=== PATIENT | male | born 1955 | race Caucasian/White ===

== ENCOUNTER 2017-08-27 13:12 | Observation (INO) | payer OTHER ==
[~2017-08-27] VITALS: Ht 190.5 cm; Wt 106.6 kg
--- NOTE | 2017-08-27 16:11 | ED UPPER/LOWER EXTREMITY COMPL ---
History of Present Illness General Chief Complaint: General Adult Stated Complaint: SYNCOPE, +LOC,LEFT ARM PAIN, WORK RELATED INJURY Source: patient Exam Limitations: no limitations Vital Signs & Intake/Output Vital Signs & Intake/Output Vital Signs Date Time Temp Pulse Resp B/P B/P Pulse O2 O2 Flow FiO2 Mean Ox Delivery Rate 08/27 1736 97 Room Air 08/27 1734 97.8 50 16 126/67 95 Room Air 08/27 1327 96.7 58 16 120/74 96 Room Air Allergies Coded Allergies: No Known Allergies (08/27/17) Reconcile Medications Allopurinol 100 MG TABLET 1 TAB PO DAILY GOUT (Reported) Dextroamphetamine/Amphetamine (Dextroamp-Amphetamin 10 MG Tab) 10 MG TABLET 1 TAB PO BID ADHD (Reported) Triage Note: 61 HE WAS LIFTING/THROWING SALT WITH A SHOVEL - "FELT A POP AND HAVE HAD PAIN SINCE". PT STATES HE THEN TOOK A FEW STEPS AND "I KNEW I WAS GOING TO PASS OUT .. IT WAS QUICK .. FROM THE PAIN". PT GOT HIMSELF UP AFTER LOC. SMALL ABRASION TO TOP OF HEAD FROM STRIKING ON TRUCK. AT PRESENT, STATES HE FEELS "WELL" BUT CONTINUES TO HAVE PAIN IN ARM. EKG COMPLETED AND SIGNED BY MD ALLEN COMP COMPLETED Triage Nurses Notes Reviewed? yes Onset: Abrupt Duration: constant Timing: single episode today Severity: severe Severity Numbers: 7 HPI: Patient is a 61-year-old male who presents to emergency room with concerns of a left elbow and biceps injury where he states that all shoveling snow he had acute onset of sharp stabbing severe left localized elbow pain where he states that this pain was so severe that he believes he lost consciousness were patient woke up on on the pavement where he believes he struck the top of his head to the pickup truck next to him more bleeding was controlled prior to arrival of his scalp. Patient's tetanus is unknown. Patient denies any headache (Sally Rutledge) Past History Travel History Traveled to [place] past 21 day No Medical History Any Pertinent Medical History? 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 No (Sally Rutledge) Review of Systems Review of Systems Constitutional: Reports: no symptoms. EENTM: Reports: no symptoms. Respiratory: Reports: no symptoms. Cardiovascular: Reports: see HPI. Gastrointestinal/Abdominal: Reports: no symptoms. Genitourinary: Reports: no symptoms. Musculoskeletal: Reports: see HPI. Skin: Reports: see HPI. Neurological/Psychological: Reports: no symptoms. Hematologic/Endocrine: Reports: no symptoms. Immunological: Reports: no symptoms. All Other Systems: Reviewed and Negative (Sally Rutledge) Physical Exam Physical Exam General Appearance: no apparent distress, alert, comfortable Head: evidence of injury Eyes: Bilateral: normal appearance, PERRL, EOMI. Ears, Nose, Throat: normal pharynx, normal ENT inspection, hearing grossly normal Neck: tender lateral Cardiovascular/Respiratory: normal breath sounds, normal peripheral pulses, no respiratory distress, bradycardia Peripheral Pulses: 2+ radial (R), 2+ radial (L) Neurologic/Tendon: normal sensation, responds to pain, no evidence tendon injury , no pulse deficit Skin: intact, normal color, warm/dry Comments: Left shoulder normal inspection pain elicited 2 antecubital fossa upon the shoulder flexion Left elbow denies antecubital fossa point tenderness positive. Pronation supination reproduced pain to the left biceps patient has mild decreased active range of motion noted with elbow flexion Left wrist normal inspection and nontender Left upper extremity dermatomes intact radial pulse +2 Head- noted superior parietal region of left scalp a 2 cm mildly gaping superficial linear laceration with no active bleeding no hematoma (Sally Rutledge) Progress Differential Diagnosis: arterial insufficiency, compartment syndrome, contusion, dislocation, DVT, fracture, gout, septic arthritis, sprain, tendon injury Diagnostic Imaging: Viewed by Me: Radiology Read. Radiology Impression: no acute abnormality Initial ED EK BPM,NSR Comments: PATIENT: SALLY DAO PRESENT AGE: 61 PATIENT ACCOUNT NO: [id number] : 59 LOCATION: [facility] ORDERING PHYSICIAN: Sally MONROY SERVICE DATE: 08/27/17 EXAM TYPE: CAT - CT CERV SPINE WO IV CONTRAST; CT HEAD WO IV CONTRAST EXAMINATIONS: CT HEAD WITHOUT CONTRAST AND CT CERVICAL SPINE WITHOUT CONTRAST CLINICAL INFORMATION: Trauma to head and neck. Pain. COMPARISON: None. TECHNIQUE: Contiguous helical images of the brain were obtained without IV contrast. Contiguous helical images of the cervical spine were obtained without IV contrast. Multiplanar reconstructions were performed. DLP: 616 mGy-cm. FINDINGS: There are no pathologic extra-axial fluid collections. The lateral, third, fourth ventricles are nondilated and concordant with the appearance of the sulci. There is no evidence for acute intraparenchymal hemorrhage or infarct. There is neither mass nor mass effect. There is no shift of midline structures. The paranasal sinuses and mastoid air cells are clear. There are no osseous lesions. The cervical vertebra are in normal alignment. There is disc height loss at C5/C6. Disc heights and vertebral heights are otherwise well-preserved. There are no fractures. There is no prevertebral soft tissue swelling. There is no cervical lymphadenopathy. The visualized lung apices are clear. IMPRESSION: No evidence for acute intracranial injury. Mild degenerative change within the lower cervical spine. No evidence for acute injury to the cervical spine. DICTATED BY: Jb Bridges MD DATE/TIME DICTATED:08/27/171640 CLAIMS ACCOUNT MANAGER:KULDIP DATE/TIME TRANSCRIBED:08/27/171640 PATIENT: SALLY DAO PRESENT AGE: 61 PATIENT ACCOUNT NO: [id number] : 59 LOCATION: [facility] ORDERING PHYSICIAN: Sally MONROY SERVICE DATE: 08/27/17160 EXAM TYPE: RAD - XRY-ELBOW 3 OR MORE VIEWS, L EXAMINATION: XR ELBOW, LEFT CLINICAL INFORMATION: Status post fall. Left elbow pain. Presumptive diagnosis of left biceps tendon rupture. COMPARISON: None TECHNIQUE: AP, lateral, and oblique views of the left elbow. FINDINGS: There is no evidence of acute fracture or dislocation. No elbow joint effusion noted. Minimal enthesopathic changes are noted from the medial distal humeral epicondyle and coronoid process. Tiny soft tissue calcifications are noted adjacent to the lateral humeral epicondyle. IMPRESSION: No evidence of acute fracture or dislocation in the left elbow. Minimal degenerative changes. DICTATED BY: Valente So MD DATE/TIME DICTATED:08/27/17 (Juventino MONROY,Sally) Plan of Care: Orders Procedure Date/time Status Regular Diet 08/[address] in observation 08/27 1818 Active Misc Message 08/27 1818 Active ED Holding Orders 08/27 181 Active Vital Signs 08/27 181 Active Code Status 08/27 181 Active MAGNESIUM 08/27 1645 Complete Telemetry/Hand Bunch Maker 08/27 161 Active TROPONIN LEVEL 08/27 161 Complete COMPREHENSIVE METABOLIC PANEL 08/27 161 Complete CBC WITHOUT DIFFERENTIAL 08/27 161 Complete EKG 08/27 1317 Active Laboratory Tests 08/27/17 1645: Anion Gap 14, Estimated GFR > 60, BUN/Creatinine Ratio 17.5, Glucose 99, Calcium 9.6, Magnesium 2.1, Total Bilirubin 0.5, AST 21, ALT 38, Alkaline Phosphatase 51 , Troponin I < 0.01, Total Protein 7.1, Albumin 4.5, Globulin 2.6, Albumin/ Globulin Ratio 1.7, CBC w Diff NO MAN DIFF REQ, RBC 4.87, MCV 93.5, MCH 31.0, RDW 12.9, MPV 7.0 L, Gran % 84.5 H, Lymphocytes % 11.9 L, Monocytes % 3.2, Eosinophils % 0.3, Basophils % 0.1, Absolute Granulocytes 8.2 H, Absolute Lymphocytes 1.1 L, Absolute Monocytes 0.3, Absolute Eosinophils 0, Absolute Basophils 0, PUBS MCHC 33.2 08/27/17 1613: Magnesium Cancelled Patient on initial examination was resting comfortably bedside however due to patient's severe pain and which he states that the pain made him pass out patient's EKG is concerning that it is 49 bpm sinus bradycardia patient is also on amphetamines for ADHD and which there is also consideration of bradycardia and syncopal episode There is noted the patient has been on radiation monitor showing sinus rhythm at 45-[address] scan was unremarkable blood work was unremarkable troponin unremarkable patient will be placed into observation for concerns of bradycardia and syncopal episode (Sally Rutledge) (Delia VITALE,Negro Mccoy) Departure Departure Disposition: STILL A PATIENT Condition: Stable Clinical Impression Primary Impression: Bradycardia Secondary Impressions: Biceps tendon rupture, Minor head injury, Scalp laceration, Syncope Referrals: Fernanda Edgar MD (PCP/Family) Departure Forms: Customer Survey General Discharge Information Industrial Accident Report (Sally Rutledge) Observation Note Spoke With: Georgina VITALE,[facility] Patient In: Non-ED OBS Care Area Rationale for Observation: My rational for observation is as follows patient suffered a syncopal episode and during his emergency department stay that showed a sinus bradycardia on EKG and telemetry monitoring. The patient is not taking any rate controlling medications at this point and as a matter fact is on amphetamines for history of ADHD. The cause for his bradycardia is unclear at this point. So long as the patient is bradycardic he is at risk of hypotension syncope chest pain and mortality. Given these risks I feel he is a poor candidate for outpatient management at this time. He now requires continuous cardiac monitoring, serial troponin determinations and consideration for echocardiogram and electrophysiologic studies. (Delia VITALE,Negro Mccoy) Procedures Laceration/Wound Repair Laceration/Wound Repair: Wound Location: head Wound's Depth, Shape: linear, superficial Wound Length (cm): 2 Wound Explored: clean, no foreign body removed, irrigated extensively Irrigated w/ Saline (ccs): 360 Betadine Prep? Yes Anesthesia: L.E.T. Wound Repaired With: sutures Suture Size/Type: 5:0 Number of Sutures: 4 (POLYABSORBALE SUTURE) Progress: Margins were revised with suture placement patient tolerated well bacitracin bandage was applied (Sally Rutledge) Critical Care Note Critical Care Note Critical Care Time: 30-74 min (Sally Rutledge)
--- NOTE | 2017-08-27 16:40 | RADIOLOGY REPORT ---
EXAMINATION: XR ELBOW, LEFT CLINICAL INFORMATION: Status post fall. Left elbow pain. Presumptive diagnosis of left biceps tendon rupture. COMPARISON: None TECHNIQUE: AP, lateral, and oblique views of the left elbow. FINDINGS: There is no evidence of acute fracture or dislocation. No elbow joint effusion noted. Minimal enthesopathic changes are noted from the medial distal humeral epicondyle and coronoid process. Tiny soft tissue calcifications are noted adjacent to the lateral humeral epicondyle. IMPRESSION: No evidence of acute fracture or dislocation in the left elbow. Minimal degenerative changes.
--- NOTE | 2017-08-27 16:49 | CT SCAN REPORT ---
EXAMINATIONS: CT HEAD WITHOUT CONTRAST AND CT CERVICAL SPINE WITHOUT CONTRAST CLINICAL INFORMATION: Trauma to head and neck. Pain. COMPARISON: None. TECHNIQUE: Contiguous helical images of the brain were obtained without IV contrast. Contiguous helical images of the cervical spine were obtained without IV contrast. Multiplanar reconstructions were performed. DLP: 616 mGy-cm. FINDINGS: There are no pathologic extra-axial fluid collections. The lateral, third, fourth ventricles are nondilated and concordant with the appearance of the sulci. There is no evidence for acute intraparenchymal hemorrhage or infarct. There is neither mass nor mass effect. There is no shift of midline structures. The paranasal sinuses and mastoid air cells are clear. There are no osseous lesions. The cervical vertebra are in normal alignment. There is disc height loss at C5/C6. Disc heights and vertebral heights are otherwise well-preserved. There are no fractures. There is no prevertebral soft tissue swelling. There is no cervical lymphadenopathy. The visualized lung apices are clear. IMPRESSION: No evidence for acute intracranial injury. Mild degenerative change within the lower cervical spine. No evidence for acute injury to the cervical spine.
[2017-08-27 16:58] LABS: ABSOLUTE BASOPHIL COUNT 0 /CUMM (0.0-0.2); ABSOLUTE EOSINOPHIL COUNT 0 /CUMM (0.0-0.7); ABSOLUTE GRANULOCYTE CT 8.2 /CUMM (1.4-6.5); ABSOLUTE LYMPH COUNT 1.1 /CUMM (1.2-3.4); ABSOLUTE MONOCYTE COUNT 0.3 /CUMM (0.10-0.60); BASOPHIL % 0.1 % (0.0-2.0); EOSINOPHIL % 0.3 % (0-5); HEMATOCRIT 45.5 % (42-52); MEAN CORPUSCULAR HGB CONC 33.2 G/DL (33.0-37.0); MEAN CORPUSCULAR VOLUME 93.5 FL (80.0-94.0); PLATELET COUNT 228 /CUMM (130-400); RBC DISTRIBUTION WIDTH 12.9 % (11.5-14.5); RED BLOOD CELL CT 4.87 /CUMM (4.70-6.10); WHITE BLOOD CELL COUNT 9.7 /CUMM (4.8-10.8)
[2017-08-27 17:00] LABS: GRANULOCYTE % 84.5 % (42.2-75.2)
[2017-08-27] MEDS ORDERED: ALLOPURINOL100 M1 PO (17:40)
[2017-08-27] MEDS ORDERED: DEXTROAMP-AMPHE10 MG PO (17:40)
--- NOTE | 2017-08-27 21:23 | History & Physical ---
General Information and HPI MD Statement: I have seen and personally examined SALLY MARLEY and documented this H&P. The patient is a 61 year old M who presented with a patient stated chief complaint of [LOC and arm pain]. Source of Information: patient Exam Limitations: no limitations History of Present Illness: This is a 61 yo male with PMH of sq. skin ca, gout on allopurinol, and ADHD who comes in with CC of LOC and L. arm pain. Around noon today patient was shoveling and throwing salt when he noted a pop and excruciating pain in his left antecubital fossa. Subsequently, immediately after the pain, he started feeling faint and lost consciousness. In the process of losing consciousness he hit his head on his truck. Patient denies any chest pain while he was exerting himself, no palpitations, and no nausea. No tingling or pain in jaw, no SOB, no N/V/D. No recent illness or sick contacts. He states that he simply began to feel lightheaded after he experienced the pain in his left elbow. He has never had LOC or exertional chest pain. Social history significant for 3-pack-year of smoking over 20 years ago, no IV drug abuse, recreational use of alcohol. He works for the [employer] and his work tends to be physically demanding. Surgical history significant for broken wrist repair and skin cancer biopsy. Family history significant for skin cancer in father. Patient reports no cardiac history in family. Medications include allopurinol, dextroamphetamine and Cialis. Patient denies use of Cialis or Viagra in the last 1 week. He did take his amphetamine this morning. No known drug allergies. Allergies/Medications Allergies: Coded Allergies: No Known Allergies (08/27/17) Home Med list Allopurinol 100 MG TABLET 1 TAB PO DAILY GOUT (Reported) Dextroamphetamine/Amphetamine (Dextroamp-Amphetamin 10 MG Tab) 10 MG TABLET 1 TAB PO BID ADHD (Reported) Diclofenac Sodium (Voltaren) 1 % GEL..GRAM. 1 GORAN TOP 4 TIMES/DAY PRN ELBOW PAIN . Ibuprofen 800 MG TABLET 1 TAB PO TID PRN PAIN AND INFLAMMATION WITH FOOD ONLY, DRINK PLENTY OF WATER. 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 Exam & Diagnostic Data Last 24 Hrs of Vital Signs/I&O Vital Signs Date Time Temp Pulse Resp B/P B/P Pulse O2 O2 Flow FiO2 Mean Ox Delivery Rate 08/27 2215 98.1 50 20 108/60 95 Room Air 08/27 2057 98.0 51 16 108/71 97 Room Air 08/27 1736 97 Room Air 08/27 1734 97.8 50 16 126/67 95 Room Air 08/27 1327 96.7 58 16 120/74 96 Room Air Intake & Output 08/28 0800 08/28 0000 08/27 1600 Intake Total Output Total Balance Patient 106.594 kg 106.594 kg Weight Weight Reported by Patient Measurement Method Physical Exam General Appearance Alert, Oriented X3, Cooperative, No Acute Distress HEENT bandage over scalp. Neck Supple, No JVD Cardiovascular Normal S1, Normal S2, No Murmurs, bradycardia Lungs Clear to Auscultation, Normal Air Movement Abdomen Soft, No Tenderness Extremities No Edema Last 24 Hrs of Labs/Luis: Laboratory Tests 08/27/17 2314: Troponin I < 0.01 08/27/17 1645: Anion Gap 14, Estimated GFR > 60, BUN/Creatinine Ratio 17.5, Glucose 99, Calcium 9.6, Magnesium 2.1, Total Bilirubin 0.5, AST 21, ALT 38, Alkaline Phosphatase 51 , Troponin I < 0.01, Total Protein 7.1, Albumin 4.5, Globulin 2.6, Albumin/ Globulin Ratio 1.7, CBC w Diff NO MAN DIFF REQ, RBC 4.87, MCV 93.5, MCH 31.0, RDW 12.9, MPV 7.0 L, Gran % 84.5 H, Lymphocytes % 11.9 L, Monocytes % 3.2, Eosinophils % 0.3, Basophils % 0.1, Absolute Granulocytes 8.2 H, Absolute Lymphocytes 1.1 L, Absolute Monocytes 0.3, Absolute Eosinophils 0, Absolute Basophils 0, PUBS MCHC 33.2, Lyme Disease Antibody Pending 08/27/17 1613: Magnesium Cancelled Assessment/Plan Assessment: ASSESSMENT: This is a 61-year-old gentleman with past medical history significant for 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 In ED he was found to have heart rate is low as 50 bpm. We will monitor Mr. Marley the telemetric floor under observation status. In ED he was found to have shallow scalp laceration which was sutured in ED. PLAN: 1. Syncope with persistent bradycardia: A differential diagnosis of syncope in this patient includes vasovagal syncope precipitated by pain, loss of consciousness due to arrhythmia/S-A node dysfunction, and CAD. 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 CT of cervical spine and head show no acute injury. Some mild degernative changes note in spine. * Orthostatic vitals * Troponin and EKG * Echocardiogram * lyme titer * Appreciate cardiac consult 2. L. arm pain: Pt describes a popping sensation in his r. antecubital fossa. A cxr of his elbow was nml. He has nml sensation, strength and ROM but he does expereince significant pain upon flexing and extending his l. elbow in AC fossa. * If pt is persistently in pain and it does not improve, would consider MRI * Out patient orthopedic follow up 3. Gout: Chronic and stable * Continue allopurinol 4. ADHD: Chronic and stable * Continue dextroamphetamine FC Reg diet Chem ppx As Ranked By This Provider Problem List: 1. Bradycardia 2. Syncope 3. Minor head injury Core Measures/Misc (04/27) Acute Coronary Syndrome ACS Diagnosis: No Congestive Heart Failure Congestive Heart Failure Diagnosis No Cerebrovascular Accident CVA/TIA Diagnosis: No VTE (View Protocol) VTE Risk Factors Acute Medical Illness No Mechanical VTE Prophylaxis d/t N/A MechProphylax Ordered No VTE Pharm Prophylaxis d/t NA PharmProphylax ordered Sepsis (View protocol) Sepsis Present: No
[2017-08-27 22:15] VITALS: BP 108/60
[2017-08-28 06:21] VITALS: BP 108/78
--- NOTE | 2017-08-28 07:25 | PN- Housestaff ---
Subjective Follow-up For: syncope; left arm pain Complaints: Left elbow pain Tele-Events Since Last Visit: Since bradycardia, hr 48-61. Subjective: He followed up and examined the patient today. He is resting comfortably in his bed, and his only complaint was left elbow pain following his unwitnessed syncope yesterday which probably lasted less than a minute. He was also found to have bradycardia and is being observed for syncope and bradycardia. No dizziness, chest pain, chest pressure, shortness of breath, leg swelling, cough, fever, chills. 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 Review of Systems Constitutional: Reports: see HPI. Objective Last 24 Hrs of Vital Signs/I&O Vital Signs Date Time Temp Pulse Resp B/P B/P Pulse O2 O2 Flow FiO2 Mean Ox Delivery Rate 08/28 0621 98.2 67 20 108/78 95 Room Air 08/27 2215 98.1 50 20 108/60 95 Room Air 08/27 2057 98.0 51 16 108/71 97 Room Air 08/27 1736 97 Room Air 08/27 1734 97.8 50 16 126/67 95 Room Air 08/27 1327 96.7 58 16 120/74 96 Room Air Intake & Output 08/28 0800 08/28 0000 08/27 1600 Intake Total 240 Output Total Balance 240 Intake, Oral 240 Patient 106.594 kg 106.594 kg Weight Weight Reported by Patient Measurement Method Physical Exam General Appearance: Alert, Oriented X3, Cooperative, No Acute Distress Other Physical Findings: HEENT dressing in situ over scalp (frontal). Neck Supple, No JVD Cardiovascular Normal S1, Normal S2, No Murmurs Lungs Clear to Auscultation, Normal Air Movement Abdomen Soft, No Tenderness Extremities Left elbow is tender over anticubital fossa, no rash/bruise, elbow ROM normal, no deformity noted. No Edema Current Medications: Current Medications Sig/Timothy Start time Last Medication Dose Route Stop Time Status Admin Acetaminophen 650 MG Q6P PRN 08/27 2129 AC PO Acetaminophen 0 .STK-MED ONE 08/27 2031 DC PO Acetaminophen 975 MG ONCE ONE 08/27 2029 DC 08/27 PO 08/27 Acetaminophen 650 MG ONCE ONE 08/27 1515 DC 08/27 PO 01/17 1516 1515 Allopurinol 100 MG DAILY 08/28 1000 AC PO Enoxaparin Sodium 40 MG DAILY 08/28 1000 AC SC Ibuprofen 600 MG Q6P PRN 08/27 2129 AC PO Ketorolac 15 MG Q6P PRN 08/27 2129 AC 08/28 Tromethamine IV 0215 Ondansetron HCl 4 MG Q6P PRN 08/27 2129 AC IV Oxycodone/ 0 .STK-MED ONE 08/27 1650 DC Acetaminophen PO Oxycodone/ 1 TAB ONCE ONE 08/27 1615 DC 08/27 Acetaminophen PO 08/27 161 1648 Tetanus/Diphtheria 0 .STK-MED ONE 08/27 1733 DC Toxoids Adsorbed IM Tetanus/Diphtheria 0.5 ML ONCE ONE 08/27 161 DC 08/27 Toxoids Adsorbed IM 08/27 1615 1738 Last 24 Hrs of Lab/Luis Results Last 24 Hrs of Labs/Mics: Laboratory Tests 08/27/17 2314: Troponin I < 0.01 08/27/17 1645: Anion Gap 14, Estimated GFR > 60, BUN/Creatinine Ratio 17.5, Glucose 99, Calcium 9.6, Magnesium 2.1, Total Bilirubin 0.5, AST 21, ALT 38, Alkaline Phosphatase 51 , Troponin I < 0.01, Total Protein 7.1, Albumin 4.5, Globulin 2.6, Albumin/ Globulin Ratio 1.7, CBC w Diff NO MAN DIFF REQ, RBC 4.87, MCV 93.5, MCH 31.0, RDW 12.9, MPV 7.0 L, Gran % 84.5 H, Lymphocytes % 11.9 L, Monocytes % 3.2, Eosinophils % 0.3, Basophils % 0.1, Absolute Granulocytes 8.2 H, Absolute Lymphocytes 1.1 L, Absolute Monocytes 0.3, Absolute Eosinophils 0, Absolute Basophils 0, PUBS MCHC 33.2, Lyme Disease Antibody Pending 08/27/17 161: Magnesium Cancelled Assessment/Plan Assessment: 61 yo M with pmh of gout on allopurinol, 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 He was found to be bradycardic and is being observed for further evaluation in telemetry floor: #Bradycardia/Syncope Patient was found to be bradycardic up to 48 bpm in the past 24 hours, and together with syncopal episode, he is currently being observed in the telemetry. Overnight no significant telemetry events noted other than sinus bradycardia, the patient is asymptomatic currently, and is pending Lyme titre. Patient likely had vasovagal syncope, given his symptoms of pain and the feeling of "about to pass out" before the syncope itself. He reported later that he had similar episode in the past as well. * Will continue to observe him in tele, and if no events, will discharge his later today. * Plan to discharge once ACS can be ruled out--trop and EKG negative for ACS so far. * Tele monitoring does not show any arrhythmia, adn the patient did not have any symptomatic bradycardia either. #Left elbow pain, likely soft tissue injury Left elbow examination is suggestive of soft tissue injury. Bone and joint exam is within normal limit and DNVS is intact. * Diclofenac gel ordered for local application * Might need Orthopedic eval if pain persists (can be done as out patient) #Continuing home meds otherwise. #Diet: Heart healthy diet #DVT ppx: SQ Lovenox #Code status: Full code Problem List: 1. Syncope 2. Bradycardia Pain Ratin Pain Location: left elbow Pain Goal: Pain 4 or less Pain Plan: prn Tomorrow's Labs & Rationales: - , DC
--- NOTE | 2017-08-28 11:14 | PN- Att Addend ---
Attending Addendum Attending Brief Note This 61-year-old gentleman was admitted because of syncope. He was shoveling snow and salt as part of venous edema, in the setting of dehydration, he had not eaten at breakfast. He felt a pain in the left elbow and shortly after felt a premonition that he was going to faint and in fact found himself either side of the truck for a few seconds. He he has had this episode once before actually presyncopal when his bowels. No other prior syncopal episode. He is nondiabetic and nonhypertensive has no known medical problems he is a nonsmoker consumes alcohol only socially and has no significant family history for sudden or premature coronary artery disease. His physical exam was essentially a unremarkable except for slight tenderness in the region of the anterior process of the elbow probably related to tendinitis. Telemetry was reviewed and he has had sinus bradycardia 40 rates going up to 66 and 70. His hospital stay labs have been unremarkable. Echocardiogram was done and will be reviewed. I suspect this 61-year-old gentleman had vasovagal syncope related to pain in the setting of dehydration. He's had similar experience in the past during defecation. I discussed with him the premonition that he would feel that he should sit down when this happens. We also discussed staying hydrated, avoid prolonged standing, compression stockings, and I told him isometric exercises. Electrocardiogram shows no conduction abnormalities no prolonged QT interval and no blocks. Physical exam does not suggest any valvular heart disease. 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 If this is unremarkable be discharged to outpatient Holter monitor recording and follow-up with with me or Anish Erickson MD.
[2017-08-28] MEDS ORDERED: VOLTAREN100 GM TOP ×2 (11:16→11:30)
--- NOTE | 2017-08-28 11:18 | Patient Discharge Instructions ---
Discharge Instructions General Discharge Information You were seen/treated for: Possible vasovagal syncope, secondary to pain and dehydration Special Instructions: Keep yourself hydrated. Compression stockings advised. Avoid straining, and exertional exercises. Please follow-up with your PCP and electric organ assembler in 1-2 weeks after discharge. If the elbow pain does not resolve, please visit your PCP or get a referral for Orthopedics/PT. Please return to emergency if symptoms worsen. Diet Continue normal diet: Yes Recommended Diet: Heart Healthy Activity Full Activity/No Limits: Yes Acute Coronary Syndrome Inclusion Criteria At DC or during hospital stay patient has or had the following: ACS DIAGNOSIS No Discharge Core Measures Meds if any: Prescribed or Continued at Discharge Meds if any: NOT Prescribed or Continued at Discharge Congestive Heart Failure Inclusion Criteria At DC or during hospital stay patient has or had the following: CHF DIAGNOSIS No Discharge Core Measures Meds if any: Prescribed or Continued at Discharge Meds if any: NOT Prescribed or Continued at Discharge Cerebrovascular accident Inclusion Criteria At DC or during hospital stay patient has or had the following: CVA/TIA Diagnosis No Discharge Core Measures Meds if any: Prescribed or Continued at Discharge Meds if any: NOT Prescribed or Continued at Discharge Venous thromboembolism Inclusion Criteria VTE Diagnosis No VTE Type NONE VTE Confirmed by (Test) NONE Discharge Core Measures - Per Current guidelines, there needs to be overlap - treatment for the first 5 days of Warfarin therapy. - If discharged on Warfarin prior to 5 days of - overlap therapy, the patient will need to be - assessed for post discharge needs including - *Post discharge parental anticoagulation - *Warfarin and/or parental anticoagulation education - *Follow up date to check INR post discharge At least 5 days overlap therapy as Inpatient No Meds if any: Prescribed or Continued at Discharge Note: Overlap Therapy is Warfarin and Anticoagulant Meds if any: NOT Prescribed or Continued at Discharge
[2017-08-28] MEDS ORDERED: IBUPROFEN800 M1 PO ×2 (11:25→11:30)
--- NOTE | 2017-08-28 18:39 | ECHOCARDIOGRAM REPORT ---
SALLY DAO Age: 61 : 1955 Gender: M Exam Date: 08/28/2017 09:19 Exam Location: [address] Ht (in): 75 Wt (lb): 235 BSA: 2.39 BP: 108 / 78 Ordering Physician: Stephania Cano MD Referring Physician: Stephania Cano MD Technologist: Jose Maria Stout [facility] Room Number: 183-1 Indications: PRESYNCOPE/SYNCOPE Rhythm: Sinus Technical Quality: fair FINDINGS Left Ventricle Normal global left ventricular size, wall thickness, systolic function with no obvious regional wall motion abnormalities. Normal left ventricular ejection fraction estimated at 60-65%. Right Ventricle Normal right ventricular size and function. Right Atrium Normal right atrial size. Left Atrium Normal left atrial size. Mitral Valve Mitral valve normal in structure and function. Trace mitral regurgitation. Aortic Valve Aortic valve is normal in structure and function. Tricuspid Valve Tricuspid valve is normal in structure and function. Trace to mild tricuspid regurgitation. Pulmonic Valve Pulmonic valve not well visualized, grossly normal. Pericardium Normal pericardium. Great Vessels Normal size aortic root and proximal ascending aorta. CONCLUSIONS Normal left and right ventricular systolic function. No significant valvular abnormalities noted. Adan High M.D. (Electronically Signed) Final Date: 28 August 2017 18:38 MEASUREMENTS (Male / Female) Normal Values 2D ECHO LV Diastolic Diameter PLAX 5.6 cm 4.2 - 5.9 / 3.9 - 5.3 cm LV Systolic Diameter PLAX 3.7 cm 2.1 - 4.0 cm LV Fractional Shortening PLAX 33.9 % 25 - 46 % LV Ejection Fraction 2D Teich 62.2 % IVS Diastolic Thickness 0.8 cm LVPW Diastolic Thickness 0.9 cm LV Relative Wall Thickness 0.3 RV Internal Dim ED PLAX 3.4 cm 1.9 - 3.8 cm LVOT Diameter 2.1 cm Aortic Root Diameter 3.2 cm LA Systolic Diameter LX 3.8 cm 3.0 - 4.0 / 2.7 - 3.8 cm LA Volume 73.0 cm 18 - 58 / 22 - 52 cm Ascending Aorta Diameter 3.0 cm DOPPLER AV Peak Velocity 116.0 cm/s AV Peak Gradient 5.4 mmHg AV Mean Velocity 84.6 cm/s AV Mean Gradient 3.0 mmHg AV Velocity Time Integral 29.4 cm LVOT Peak Velocity 79.0 cm/s LVOT Peak Gradient 2.5 mmHg LVOT Mean Velocity 52.2 cm/s LVOT Mean Gradient 1.0 mmHg LVOT Velocity Time Integral 18.1 cm LVOT Stroke Volume 62.7 cm AV Area Cont Eq vti 2.1 cm AV Area Cont Eq pk 2.4 cm MV Peak Velocity 79.2 cm/s MV Peak Gradient 2.5 mmHg MV Mean Velocity 46.8 cm/s MV Mean Gradient 1.0 mmHg Mitral E Point Velocity 64.7 cm/s Mitral A Point Velocity 54.3 cm/s Mitral E to A Ratio 1.2 MV PHT Velocity 84.5 cm/s MV Deceleration [place] 315.0 cm/s MV Pressure Half Time 80.5 ms MV Area PHT 2.7 cm MV Deceleration Time 331.0 ms PV Peak Velocity 78.6 cm/s PV Peak Gradient 2.5 mmHg PV Mean Velocity 61.0 cm/s PV Mean Gradient 2.0 mmHg PV Velocity Time Integral 21.9 cm LV E' Lateral Velocity 11.5 cm/s Mitral E to LV E' Lateral Ratio 5.6 LV E' Septal Velocity 10.2 cm/s Mitral E to LV E' Septal Ratio 6.3
== END 2017-08-28 13:07 ==
LOC: ERH 13:12 → ERHI 18:19 → 1NO 18:19 → ENRESERV 19:40 → 1NO 21:32 → ENPENDDIS 08-28 11:29 → 1NO 08-28 13:07
PROVIDERS: Physician Assistant
DX: R55 Syncope and collapse (principal); Z85.828 Personal history of other malignant neoplasm of skin; M10.9 Gout, unspecified; F90.9 Attention-deficit hyperactivity disorder, unspecified type; F17.200 Nicotine dependence, unspecified, uncomplicated; R00.1 Bradycardia, unspecified; S01.01XA Laceration without foreign body of scalp, initial encounter; W22.09XA Striking against other stationary object, initial encounter; Y93.H1 Activity, digging, shoveling and raking; Y92.009 Unspecified place in unspecified non-institutional (private) residence as the place of occurrence of the external cause; M79.602 Pain in left arm
CPT/HCPCS: 6020; 86618; 36415; 73080-LT; 90471; 90714; 93005; 93010; 93306; 96372; 96374; G0378; J1650; J2405